=== PATIENT | female | born 1970 | race Caucasian/White ===

== ENCOUNTER 2018-10-20 06:39 | Inpatient (IN) | payer OTHER ==
[~2018-10-20] VITALS: Ht 167.6 cm; Wt 101.8 kg
[~2018-10-20 06:39] MED LIST: AMIT150T PO; FLUO20CA19 PO; HYDR-3546 OR; METO-159 PO
[2018-10-20] MEDS ORDERED: LIDOCAINE 2%HCL (LOCAL ANESTH.) INJ 20ML MDV ONE (07:18)
[2018-10-20] MEDS ORDERED: MIDAZOLAM HCL 1MG/1ML-2 ML VIAL ONE ×3 (08:02→10:25)
[2018-10-20] MEDS ORDERED: fentaNYL CITRATE 100 MCG/2 ML VL ONE (08:02)
[2018-10-20] MEDS ORDERED: SODIUM CHL 0.9% 50 ML ONE (09:17)
[2018-10-20] MEDS ORDERED: ceFAZolin 1GM VL ONE (09:17)
[2018-10-20] MEDS ORDERED: HEPARIN SODIUM (PORCINE) 5000 UNITS/ML 1ML VIAL ONE ×2 (09:20→09:30)
[2018-10-20] MEDS ORDERED: HEPARIN DRIP/D5W 100UNITS/ML 250 ML IV ONE (09:29)
[2018-10-20] MEDS ORDERED: hydrALAZINE HCL 20 MG/ML VL ONE (10:48)
[2018-10-20] MEDS ORDERED: AMIODARONE HCL (50 MG/ ML) 3 ML VIAL IV ONE (11:03)
[2018-10-20] MEDS ORDERED: HYDROmorphone HCL 2 MG/ML VL ONE (11:24)
[2018-10-20] MEDS ORDERED: METOPROLOL TARTRATE 1MG/1ML-5ML VIAL IV ONE (11:24)
--- NOTE | 2018-10-20 11:59 | NUR ---
ACT Value; ACT of , Dr. Cain called with value, no answer at this time. Dr. Cain's exchange contacted to be paged. Patient c/o right groin pain 10/25, Dr. Cain to be made aware.
[2018-10-20] MEDS ORDERED: ACETAMINOPHEN 500 MG TAB PO PRN (12:15)
[2018-10-20] MEDS ORDERED: HYDROcodone-ACET 5/325MG TAB PO PRN (12:15)
[2018-10-20] MEDS ORDERED: MORPHINE SULF INJ 2 MG/ML SYRINGE 1ML IV PRN (12:15)
[2018-10-20] MEDS ORDERED: LORazepam 0.5 MG TAB PO PRN (12:15)
[2018-10-20] MEDS ORDERED: NITROGLYCERIN 0.4 MG SL TAB SL PRN (12:15)
[2018-10-20] MEDS ORDERED: ONDANSETRON HCL 4 MG/2 ML VIAL IV PRN (12:15)
[2018-10-20] MEDS ORDERED: ZOLPIDEM TARTRATE 5 MG TAB PO PRN (12:15)
[2018-10-20] MEDS ORDERED: SODIUM CHLOR 0.9% PF (SALINE LOCK) 10ML VIAL/SYR IV SCH (14:00)
--- NOTE | 2018-10-20 14:05 | NUR ---
PATIENT ARRIVED TO UNIT PATIENT ARRIVED ON UNIT AT THIS TIME LAYING FLAT VIA STRETCHER BY CONTROLS ENGINEER. TUSHAR LAZO AT BEDSIDE, RIGHT GROIN VISUALIZED. DRESSING DRY AND INTACT SKIN AROUND INCISION PALPATED, NO HEMATOMA NOTED. BILATERAL PULSES PALPATED. PATIENT DENIES PAIN, SOB, OR ANY DISTRESS AT THIS TIME. PATIENT ALERT AND ORIENTED X4, ORIENTED PATIENT TO UNIT, STAFF, CALL LIGHT AND VISITING HOURS. DISCUSSED POC PATIENT VERBALIZED UNDERSTANDING. ASSISTED PATIENT TO CHANGE SANITATION [place], NO FLEXION OF RIGHT LEG PERFORMED. WILL CONTINUE TO MONITOR
[2018-10-20 14:11] VITALS: BP 124/74
[2018-10-20 15:29] VITALS: BP 140/79
[2018-10-20 16:00] VITALS: BP 117/74
[2018-10-20] MEDS ORDERED: ASPirin 81 mg TAB PO ONE (17:15)
--- NOTE | 2018-10-20 18:15 | NUR ---
DISCHARGE NOTE PATIENT ALERT AND ORIENTED X4. ALL DISCHARGE INSTRUCTIONS GIVEN, ALL QUESTIONS AND CONCERNS ANSWERED. IV REMOVED CATHETER INTACT PRESSURE DRESSINGS APPLIED PATIENT TOLERATED WELL. TELE BOX REMOVED CLEANED AND RETURNED TO [place]. PATIENT VERBALIZED WANTING TO AMBULATE TO PERSONAL VEHICLE WITH FAMILY. GAIT STEADY.
== END 2018-10-20 18:09 | disposition home or self-care (01) | DRG 274 ==
LOC: CATH 06:39 → EDSTATUS 08:00 → TELE-EAST 14:20
PROVIDERS: ADMIT Specialist; ATTEND Specialist
PROC: 4A023FZ Measurement of Cardiac Rhythm, Percutaneous Approach (ICD-10-PCS; principal; 2018-10-20)
PROC: 4A0234Z Measurement of Cardiac Electrical Activity, Percutaneous Approach (ICD-10-PCS; 2018-10-20)
PROC: 02K83ZZ Map Conduction Mechanism, Percutaneous Approach (ICD-10-PCS; 2018-10-20)
PROC: 02583ZZ Destruction of Conduction Mechanism, Percutaneous Approach (ICD-10-PCS; 2018-10-20)
PROC: B2141ZZ Fluoroscopy of Right Heart using Low Osmolar Contrast (ICD-10-PCS; 2018-10-20)
DX: I47.1 Supraventricular tachycardia (principal); I49.3 Ventricular premature depolarization; I25.10 Atherosclerotic heart disease of native coronary artery without angina pectoris; F17.200 Nicotine dependence, unspecified, uncomplicated; I25.2 Old myocardial infarction
CPT/HCPCS: 93613; 93620; 99152; G0378; J0690; J2250